=== PATIENT | female | born 1970 | race Caucasian/White ===

== ENCOUNTER → 2016-12-30 | Outpatient (CLI) | payer MEDICAID ==
--- NOTE | 2017-01-07 09:43 | RADIOLOGY REPORT PS360 ---
DIG MAMM-SCREEN IMPLANT W/CADECKLUND technique. CAD Screening ORDERING PHYSICIAN : Hair Snyder MD PATIENT AGE: 46 years GENDER: Female COMPARISON: Previous mammograms: May 2013, December 2014, 2015 INDICATION: Routine screening 46-year-old. No hormones no new complaints bilateral breast implants TECHNIQUE: Bilateral breast implants OTONIEL technique. CC and MLO images were obtained of overlying breast tissue as well as including implant. R2 CAD reviewed. FINDINGS: , Bilateral breast implants with Moderate diffuse heterogeneous & mildly asymmetric fibroglandular pattern at overlying breast tissue. No significant new findings or significant change since previous studies . No dominant mass nor suspicious calcifications nor architectural distortion.. I would note of bilateral breast implants 2 inherently limit And decrease sensitivity mammography RIGHT BREAST:. The breasts elements are slightly more pronounced at the right retroareolar region but this is similar to previous studies. No new areas of concern LEFT BREAST: No significant new findings Nipple ring on left again noted IMPRESSION: . No significant interval change No suspicious findings Bilateral breast implants along with moderately dense breast tissue decrease sensitivity mammography in this patient. would encourage self breast exam Routine bilateral follow-up recommended BI-RADS CATEGORY: 2_Benign RECOMMENDED FOLLOWUP: 12M 12 MONTH FOLLOW-UP (A letter has been sent to the patient regarding results of the study.)
== END ==
LOC: RAD 12-03 10:30
DX: Z12.31 Encounter for screening mammogram for malignant neoplasm of breast (principal)
CPT/HCPCS: G0202